=== PATIENT | male | born 1960 | race Caucasian/White ===

== ENCOUNTER 2018-12-05 03:14 | Emergency (ER) | payer OTHER ==
[2018-12-05] MEDS ORDERED: Lidocaine 1% Inj (20ml) IJ STA (04:17)
[2018-12-05 04:23] VITALS: TEMP 98.1
--- NOTE | 2018-12-05 04:39 | ED PDOC ---
Arrival/HPI - General Chief Complaint: Trauma Time Seen by Provider: 12/05/18 03:33 Historian: Patient - History of Present Illness Narrative History of Present Illness (Text): 12/05/18 05:09 58 year old male, with no significant past medical history, presents to the emergency department with laceration status post mechanical fall. Patient states he was walking up stairs when he tripped and fell, hitting his face. Patient states he hit hits lower lip on impact, cutting it open. Patient also informs sustaining some minor abrasions to the hands. Patient's last TDAP is unknown. Patient denies any LOC, neck pain. jaw pain, or dental trauma. Patient also denies any fevers, chills, headache, dizziness, chest pain, shortness of breath, cough, abdominal pain, nausea, vomiting, diarrhea, back pain, or any other complaint. Time/Duration: Prior to Arrival Symptom Onset: Sudden Activities at Onset: Light Context: Walking, Home Past Medical History - Provider Review Nursing Documentation Reviewed: Yes - Infectious Disease Hx of Infectious Diseases: None - Cardiac Hx Cardiac Disorders: No - Pulmonary Hx Respiratory Disorders: No - Neurological Hx Neurological Disorder: No Hx Alzheimer's Disease: No - Psychiatric Hx Substance Use: No - Surgical History Hx Cholecystectomy: Yes - Anesthesia Hx Anesthesia: No Family/Social History - Physician Review Nursing Documentation Reviewed: Yes Family/Social History: No Known Family HX Smoking Status: Never Smoked Hx Alcohol Use: No Hx Substance Use: No Allergies/Home Meds Allergies/Adverse Reactions: Allergies No Known Allergies Allergy (Verified 12/05/18 03:22) Review of Systems - Physician Review All systems were reviewed & negative as marked: Yes - Review of Systems Constitutional: absent: Fevers, Night Sweats Respiratory: absent: SOB, Cough Cardiovascular: absent: Chest Pain Gastrointestinal: absent: Abdominal Pain, Diarrhea, Nausea, Vomiting Musculoskeletal: absent: Back Pain, Neck Pain Skin: Laceration Neurological: absent: Headache, Dizziness Physical Exam - Physical Exam Narrative Physical Exam (Text): 12/05/18 05:15 Gen: VS reviewed, alert, well developed, well nourished, nontoxic, mild distress. ENT: large stellate shaped laceration to the inner lip, approx 2cm in diameter, +active bleeding, no debris; there is no mandible or dental tenderness to manipulation Eye: EOMI, PERRL. Neck: no JVD, supple, no adenopathy.no midline tenderness Ext: no edema. Skin: good color, no rash, no cyanosis, laceration to lower lip approx 1cm linear with horizontal lie. there are multiple scant superficial abrasions of the hands Psych: responds appropriately to questions, normal affect. Neuro: oriented x 3, CN2-12 intact grossly, motor intact, sensation intact. 12/07/18 20:45 12/07/18 20:47 Vital Signs Reviewed: Yes Vital Signs Temp Pulse Resp BP Pulse Ox 12/05/18 04:22 98.1 F 82 100 H 149/65 99 12/05/18 03:22 97.6 F 81 18 142/78 100 Temperature: Afebrile Blood Pressure: Normal Pulse: Regular Respiratory Rate: Normal Appearance: Positive for: Well-Appearing, Non-Toxic, Comfortable Pain Distress: None Mental Status: Positive for: Alert and Oriented X 3 Medical Decision Making ED Course and Treatment: 12/05/18 04:39 Impression: 58 year old male presents with laceration Plan: -- Bacitracin -- Lidocaine 1% -- TDAP -- Reassess and disposition Prior Visits: Notes and results from previous visits were reviewed. Progress Notes: PROCEDURE: LACERATION REPAIR Performed by the emergency provider Location: Lower lip Length: 3 cm Description: lean wound edges Distal CMS: Normal. No deficits. Neurovascularly intact. Anesthesia: Lidocaine 1% Preparation: The wound was cleaned with NS and Betadyne. The area was prepped and draped in the usual sterile fashion. Exploration: The wound was explored and no foreign bodies were found. Procedure: The wound was closed with 4.0 monochrome (mucousal side) and 4.0 nylon. There was good approximation. In total, 4 were used. Post-Procedure: Good closure and hemostasis. The patient tolerated the procedure well and there were no complications. CSM remains intact. Post procedure dressing applied. 12/07/18 20:48 lower lip laceration, tetanus updated, laceration closed , no other injury susta ined, empiric abx 12/07/18 20:51 - Medication Orders Current Medication Orders: Discontinued Medications Lidocaine HCl (Lidocaine 1% (20ml)) 20 ml IJ STAT STA Stop: 12/05/18 04:18 - Scribe Statement The provider has reviewed the documentation as recorded by the Mook Perera Provider Scribe Attestation: All medical record entries made by the Destineyibjatin were at my direction and personally dictated by me. I have reviewed the chart and agree that the record accurately reflects my personal performance of the history, physical exam, medical decision making, and the department course for this patient. I have also personally directed, reviewed, and agree with the discharge instructions and disposition. Disposition/Present on Arrival - Present on Arrival Any Indicators Present on Arrival: No History of DVT/PE: No History of Uncontrolled Diabetes: No Urinary Catheter: No History of Decub. Ulcer: No History Surgical Site Infection Following: None - Disposition Have Diagnosis and Disposition been Completed?: Yes Diagnosis: Complex laceration of face Disposition: HOME/ ROUTINE Disposition Time: 20:50 Patient Plan: Discharge Condition: STABLE Discharge Instructions (ExitCare): Laceration Repair With Stitches (DC) Additional Instructions: have the sutures removed in 3-5 days. Prescriptions: Amoxicillin/Clavulanate [Augmentin 875 MG-125 MG] 1 tab PO BID 5 Days #10 tab Referrals: Chandana Kahn MD [Primary Care Provider] - Follow up with primary Forms: [employer] (Malay)
[2018-12-05] MEDS ORDERED: TDAP Vaccine 0.5 mL Syr IM ONE (05:13)
[2018-12-05] MEDS ORDERED: Bacitracin 500 Units/gm Oint Foilpak UD TOP STA (05:13)
[2018-12-05] MEDS ORDERED: Bacitracin 500 Units/gm Oint Foilpak UD ONE (05:17)
[2018-12-05 05:51] VITALS: BP 135/72; PULSE 80; RESP 18; O2SAT 100
[2018-12-05] MEDS ORDERED: Sodium Chloride 0.9% 10 ML IV ONE (08:28)
== END 2018-12-05 05:25 | disposition home or self-care (01) ==
LOC: ED 03:14
DX: S01.81XA Laceration without foreign body of other part of head, initial encounter (principal); W10.9XXA Fall (on) (from) unspecified stairs and steps, initial encounter; Z23 Encounter for immunization